=== PATIENT | female | born 1985 | race Asian ===

== ENCOUNTER 2018-04-14 20:44 | Emergency (ER) | payer OTHER ==
[~2018-04-14] VITALS: Ht 162.6 cm; Wt 142.9 kg
[~2018-04-14 20:44] MED LIST: CLONIDINE0.2 MG PO
[2018-04-14 20:58] VITALS: TEMP 98.2
[2018-04-14 21:44] LABS: PLATELET COUNT 352 K/uL (152-353)
[2018-04-14 21:56] LABS: POTASSIUM 3.7 mmol/L (3.6-5.2)
[2018-04-14 22:54] VITALS: BP 173/119
== END 2018-04-14 22:54 | disposition home or self-care (01) ==
LOC: ED 20:44
PROVIDERS: Emergency Medicine
DX: R51 Headache (principal); I10 Essential (primary) hypertension
CPT/HCPCS: 80053; 81025; 85027; 93005; 96372; 99283; J2175; J3490

== ENCOUNTER 2018-09-18 05:43 | Observation (INO) | payer OTHER ==
[~2018-09-18] VITALS: Ht 162.6 cm; Wt 132.1 kg
[2018-09-18] VITALS (13 sets, daily range): BP systolic 150–248; BP diastolic 105–172; TEMP 98.2–98.3; Ht 162.6 cm; Wt 132.1 kg
[2018-09-18 07:38] LABS: PLATELET COUNT 327 K/uL (152-353)
[2018-09-18] MEDS ORDERED: UNITH DIRECT75 MCG PO (07:40)
[2018-09-18] MEDS ORDERED: HYZAAR1 TA1 PO (07:40)
[2018-09-18 07:47] LABS: POTASSIUM 3.5 mmol/L (3.6-5.2)
[2018-09-18 16:44] LABS: PARTIAL THROMBOPLASTIN TIME 27.6 SECONDS (24.5-33.6)
[2018-09-19] VITALS: BP 154/111; TEMP 97.7
[2018-09-19 01:03] LABS: POTASSIUM 3.6 mmol/L (3.6-5.2)
[2018-09-19 04:00] VITALS: BP 147/107; TEMP 98.1
[2018-09-19 07:06] LABS: PLATELET COUNT 310 K/uL (152-353)
[2018-09-19 08:00] VITALS: BP 148/104; TEMP 97.6
[2018-09-19] MEDS ORDERED: BENZONATATE100 MG PO (09:49)
[2018-09-19] MEDS ORDERED: ASPIRIN325 M1 PO ×2 (09:51→10:04)
[2018-09-19] MEDS ORDERED: LABETALOL200 MG PO (09:51)
[2018-09-19] MEDS ORDERED: Z-PAK PO (09:53)
[2018-09-19] MEDS ORDERED: ASPIR-8181 MG PO (10:02)
[2018-09-19 12:00] VITALS: BP 152/105; TEMP 97.9
[2018-09-19 16:00] VITALS: BP 152/105; TEMP 97.9
== END 2018-09-19 16:30 | disposition home or self-care (01) ==
LOC: ED 05:43 → MED/SURG 10:32
PROVIDERS: Emergency Medicine; ADMIT Family Medicine
DX: R04.0 Epistaxis (principal); E03.8 Other specified hypothyroidism; E66.01 Morbid (severe) obesity due to excess calories; Z68.43 Body mass index [BMI] 50.0-59.9, adult; Z71.3 Dietary counseling and surveillance; G47.33 Obstructive sleep apnea (adult) (pediatric); E87.6 Hypokalemia; I12.9 Hypertensive chronic kidney disease with stage 1 through stage 4 chronic kidney disease, or unspecified chronic kidney disease; N18.2 Chronic kidney disease, stage 2 (mild); E83.42 Hypomagnesemia; J20.9 Acute bronchitis, unspecified; R79.89 Other specified abnormal findings of blood chemistry
CPT/HCPCS: 36415; 80048; 80053; 81000; 82550; 83735; 84443; 84484; 85027; 85610; 85730; 93005; 96374; 96375; 99220; 99284; G0378; J1650; J1940; J3475; J3490

== ENCOUNTER 2019-02-27 01:06 | Emergency (ER) | payer OTHER ==
[~2019-02-27] VITALS: Ht 162.6 cm; Wt 143.8 kg
[~2019-02-27 01:06] MED LIST changes: +ASPIR-8181 MG PO; +ASPIRIN325 M1 PO; +BENZONATATE100 MG PO; +HYZAAR1 TA1 PO; +LABETALOL200 MG PO; +UNITH DIRECT75 MCG PO; +Z-PAK PO
[2019-02-27 01:22] VITALS: BP 188/103; TEMP 97.7
== END 2019-02-27 01:38 | disposition home or self-care (01) ==
LOC: ED 01:06
DX: O46.91 Antepartum hemorrhage, unspecified, first trimester (principal); Z3A.10 10 weeks gestation of pregnancy
CPT/HCPCS: 99281

== ENCOUNTER 2020-05-04 21:31 | Outpatient (CLI) | payer BC | END 2020-05-04 22:30 | disposition home or self-care (01) | LOC: RAD 21:31 | DX: J20.9 Acute bronchitis, unspecified (principal) ==

== ENCOUNTER 2020-05-08 05:12 | Emergency (ER) | payer BC, OTHER ==
[~2020-05-08] VITALS: Ht 162.6 cm; Wt 142.9 kg
[2020-05-08 06:50] VITALS: BP 198/122; TEMP 98.2
== END 2020-05-08 06:50 | disposition home or self-care (01) ==
LOC: ED 05:12
DX: S29.011A Strain of muscle and tendon of front wall of thorax, initial encounter (principal); J42 Unspecified chronic bronchitis
CPT/HCPCS: 99284; J1885

== ENCOUNTER 2020-07-15 12:53 | Emergency (ER) | payer BC, OTHER ==
[~2020-07-15] VITALS: Ht 162.6 cm; Wt 142.9 kg
[2020-07-15 13:40] LABS: PLATELET COUNT 246 K/uL (152-353)
[2020-07-15 13:46] LABS: POTASSIUM 4.2 mmol/L (3.6-5.2)
[2020-07-15 16:55] VITALS: BP 170/111; TEMP 98
== END 2020-07-15 17:00 | disposition home or self-care (01) ==
LOC: ED 12:53
PROVIDERS: Hospitalist
DX: J18.9 Pneumonia, unspecified organism (principal); R19.7 Diarrhea, unspecified; R11.2 Nausea with vomiting, unspecified; Z20.828 Contact with and (suspected) exposure to other viral communicable diseases
CPT/HCPCS: 80053; 81025; 83690; 85027; 87502; 87635; 87651; 96360; 96365; 96375; 96376; 99284; J0360; J0696; J2405; J3490; U0003

== ENCOUNTER 2020-12-04 11:18 | Outpatient (CLI) | payer BC, OTHER ==
[2020-12-04 12:10] LABS: PLATELET COUNT 259 K/uL (152-353)
== END 2020-12-04 22:00 | disposition home or self-care (01) ==
LOC: LABW 11:18
PROVIDERS: ATTEND Nurse Practitioner Family
DX: Z03.89 Encounter for observation for other suspected diseases and conditions ruled out (principal)
CPT/HCPCS: 36415; 85027

== ENCOUNTER 2020-12-06 13:40 | Inpatient (IN) | payer BC, OTHER ==
[~2020-12-06] VITALS: Ht 162.6 cm; Wt 161.2 kg
[2020-12-06 02:30] VITALS: BP 175/106
--- NOTE | 2020-12-06 14:05 | NUR ---
PATIENT BROUGHT VIA WHEELCHAIR TO ROOM 1111. PATIENT ORIENTED TO ROOM AND CALL LIGHT. VITAL SIGNS TAKEN AND WERE FOLLOWED: 98.5 TEMP, HR-101, R-25, 247/148, 97% ON RA.
--- NOTE | 2020-12-06 14:26 | NUR ---
MANUAL BLOOD PRESSURE TAKEN IN THE LEFT UPPER ARM AND READING 210/140 WITH HR 100. NOTIFIED AND NEW ORDERS GIVEN FOR LABETOLOL 200 MG PO X1 NOW;LOPRESSOR 5MG SLOW IV PUSH X1. ORDERS PLACED AT THIS TIME.
--- NOTE | 2020-12-06 14:50 | NUR ---
IV 20G X1 ATTEMPT TO THE RAC UNSUCCESSFUL. IV 22G TO THE LEFT FOREARM X1 ATTEMPT, FLUSHED AND SECURED WITH NS IV FLUSHED WITHOUT DIFFICULTY.
--- NOTE | 2020-12-06 14:51 | NUR ---
IV LOPRESSOR 5 MG IV PUSH X1 GIVEN TO THE LEFT FOREARM. LABETALOL 200 MG PO X1 NOW.
[2020-12-06 15:22] LABS: PLATELET COUNT 273 K/uL (152-353)
[2020-12-06 15:48] LABS: POTASSIUM 3.4 mmol/L (3.6-5.2); SODIUM 139 mmol/L (136-145)
[2020-12-06] MEDS ORDERED: LABETALOL200 MG PO (15:53)
[2020-12-06] MEDS ORDERED: [UNRECOGNIZED DRUG - OTHER] PO (15:54)
[2020-12-06 15:55] VITALS: BP 247/148; TEMP 98.5; Ht 162.6 cm; Wt 161.2 kg
--- NOTE | 2020-12-06 16:31 | NUR ---
RECHECKED BLOOD PRESSURE TO THE LEFT ARM MANUAL AND IT WAS READING 198/130. NOTIFIED . AWAITING RESULTS.
--- NOTE | 2020-12-06 17:56 | NUR ---
SPOKE TO DR. SHARMA REGARDING CONCERNS FOR PATIENT SHORTNESS OF BREATH ON EXERTION AND ON REST WHILE IN THE BED. NOTIFIED THAT PATIENT STATED SHE USES A CPAP AT NIGHT BUT THAT HER WAS NOT GOING TO BE ABLE TO BRING HER MACHINE UP HERE.ALL LABS SENT TO INCLUDING CHEST X-RAY, CMP, CBC, TSH, D.DIMER, CARDIACS. NEW ORDERS GIVEN FOR LASIX 20 MG IV X1 IV PUSH, SYNTHROID 50 MCG X1 PO NOW AND DAILY. PATIENT IS TO BE ON PULSE OX CONTINUOUSLY AND MONITOR 02 SATS AND REPORT ANY FINDINGS TO . DID NOTIFY THAT PATIENTS BLOOD PRESSURE CONTINUES TO BE ELEVATED AT 198/136 MANUAL.
--- NOTE | 2020-12-06 18:32 | NUR ---
RT AT THE BEDSIDE. ABG ORDERED AND OBTAINED.
--- NOTE | 2020-12-06 18:35 | NUR ---
PATIENT PLACED ON 02 AT 2 LPM VIA NC.
[2020-12-06 19:50] VITALS: BP 203/136; TEMP 97.8
--- NOTE | 2020-12-06 20:05 | NUR ---
PT WAS PLACED ON CPAP. BP AT PRESENT IS 203/136. HEART RATE IS 77.
--- NOTE | 2020-12-06 20:30 | NUR ---
20:30PM TO CT FOR CHEST SCAN. 20:45PM BLOOD DRAWN FOR CARDIAC ENZYMES. EKG DONE.
--- NOTE | 2020-12-06 21:09 | NUR ---
LABATELOL 200MG PO GIVEN. LOPRESSOR 5 MG IVSP GIVEN. ASPIRIN 325 MG PO GIVEN. LOVENOX 100MG SQ GIVEN. WILL ASSESS IN 1 HOUR FOR EFFECTIVENESS.
--- NOTE | 2020-12-06 21:24 | NUR ---
PT IS RESTING. WEARING C PAP . STATED THAT SHE HADNT RESTED SINCE YESTERDAY. "FEELS TIRED". HR IS 70 BPM. O2 SAT IS 100 PERCENT.
--- NOTE | 2020-12-06 22:03 | NUR ---
BP WAS REASSESSED. 227/148. 40 MINUTES AFTER MEDICATIONS ADMINISTRATION.LAB REPORT BACK ELEVATED CPK. CT REPORT BACK ENLARGED HEART. 800 ML OF CLEAR URINE MEASURED. PT IS RESTING. WEARING CPAP. HR IS 77 AND O2 SAT IS 99 PERCENT.
--- NOTE | 2020-12-06 22:17 | NUR ---
CHARGE NURSE LUKE ASHLEY RN REPORTED TO DR. SHARMA RESULTS OF CT,EKG, CARDIAC ENZYMES, BP,HR, AND PT'S CURRENT STATUS. NEW ORDERS RECEIVED, PT DENIES AND CHSET PAIN OR DISCOMFORT AT THIS TIME.
--- NOTE | 2020-12-06 22:33 | NUR ---
CALLED DR SHARMA WITH PATIENTS MANUAL BP. IT WAS 182/124 DR SHARMA ORDERED NITRO PASTE, LOSARTAN NOROVASC, AND CLONIDINE.
--- NOTE | 2020-12-06 23:11 | NUR ---
PATIENT BP IS 176/122
[2020-12-06 23:37] VITALS: BP 176/122; TEMP 97.6
[2020-12-07] VITALS (45 sets, daily range): BP systolic 132–177; BP diastolic 73–115; TEMP 97.9–98.5
--- NOTE | 2020-12-07 00:03 | NUR ---
HR IS 67. MONITORING PT'S BP AND HR AND EFFECTS OF MEDICATION GIVEN PRIOR. PT IS TO BE MOVED TO ICU FOR ADMINSTRATION OF CARDENE DRIP.
--- NOTE | 2020-12-07 00:39 | NUR ---
LATE ENTRY 12/06/20 2211: BP 182/124 MANUAL 2303: BP 176/122 MANUAL 0010: BP201/132 0030: 204/133 0045: 160/108
--- NOTE | 2020-12-07 00:43 | NUR ---
PT WITH SR 66. BP 168/108. O2 SAT IS 99 PERCENT. PATIENT IS RESTING. BEDSIDE TABLE IN EASY REACH. ENTRY LEVEL ADMINISTRATIVE ASSISTANT INTACT. MONITORING BP EVERY 15 MINUTES PER PROTOCAL.
--- NOTE | 2020-12-07 02:31 | NUR ---
EKG BEING DONE. BLOOD FOR CARDIAC ENZYMES NUMBER 3 WAS DRAWN. CARDENE DRIP AT 15, MEAN PRESSURE 129.
--- NOTE | 2020-12-07 02:34 | NUR ---
PT UP OUT OF BED WITH SUPERVISION. TO BATHROOM TO VOID. BACK TO BED. PT DOES BECOME SHORT OF BREATH WITH ACTIVITY. CPAP PLACED BACK ON.
--- NOTE | 2020-12-07 02:39 | NUR ---
EKG RESULTS ARE SINUS RHYTHM/LEFT ATRIAL ENLARGEMENT/PROLONGED QT INTERVAL.
--- NOTE | 2020-12-07 04:01 | NUR ---
BP IS 147/88. CARDENE DRIP AT 2.5 MG/HR 25ML/HR AT PRESENT TIME. MEAN PRESSURE IS 111.
--- NOTE | 2020-12-07 07:00 | NUR ---
REC'D PT RESTING IN BED IN SEMI-DANIELS'S. PT AWAKE AND ALERT. NO ACUTE DISTRESS OR CO AT THIS TIME. CARDENE DRIP INFUSIMG VIA PUMP INTO LEFT FA AT 50ML/HR. PT'S BP ON ARRIVAL OF SHIFT 154/93 (113). WILL CON'T TO MONITOR AND ADJSUT PER PROTOCOL. PT WEARING PERSONAL CPAP MACHINE AT THIS ITME.
[2020-12-07 07:35] LABS: PLATELET COUNT 269 K/uL (152-353)
[2020-12-07 07:56] LABS: POTASSIUM 3.7 mmol/L (3.6-5.2)
--- NOTE | 2020-12-07 08:15 | NUR ---
PT CO OF HEADACHE. BP 137/78 MAP (99). BP 15 MINS PRIOR WAS 146/86 MAP(107)/ CARDENE DRIP INFRUSING AT 50ML/HR AND WAS DECREASED TO 25ML/HR AT THIS TIME. WILL CON'T TO MONITOR PT AND PT'S BP AND WILL NOTIFY MD IN NEEDED
--- NOTE | 2020-12-07 08:50 | NUR ---
bp remains 132/74 DR SHARMA NOTIFIED AND AWAITING FURTHER ORDERS. ALSO ASKED MD IF SHE WANTED PT TO REC PO LABETOL OR HOLD DT RECENT BP. NEW ORDERS REC'D TO OBTAIN CARDIAC ENZYMES EVERY 6 HR UNTIL WNL.
--- NOTE | 2020-12-07 09:44 | NUR ---
DR HUSSEIN CALLED AND NEW ORDERS REC'D TO GIVE PO LABETOL AND WAIT APPROX 30 MINS TO STOP IV CARDENE DRIP. WILL EXPLAIN TO PT NE ORDERS
--- NOTE | 2020-12-07 10:17 | NUR ---
CARDENE DRIP STOPPED AT THIS TIME PER MD ORDERS. WILL CONT TO MONITOR.
--- NOTE | 2020-12-07 11:00 | NUR ---
SAURABH FROM [facility] AT PT'S BS PERFORMING ECHO AT THIS TIME. 1135 PT'S BP NOTED TO BE SLIGHTLY INCREASED FROM PREVIOUS READING AT 164/102 DR HUSSEIN AWARE AND AWAITING FURTHER ORDERS AT THIS TIME
--- NOTE | 2020-12-07 11:36 | NUR ---
NEW ORDERS REC'D FOR TYLENOL 650MG AT THIS TIME FOR KEANE
--- NOTE | 2020-12-07 11:59 | NUR ---
NEW ORDERS REC'D TO HOLD OFF ON NITRO AT THIS TIME BP 140/95 WILL CONT TO MONITOR.
--- NOTE | 2020-12-07 12:55 | NUR ---
ECHO REPORT SENT TO DR HUSSEIN BY SAURABH IN [facility].
--- NOTE | 2020-12-07 14:04 | NUR ---
DR SHARMA HERE AT BS MAKING ROUNDS AT THIS TIME.
--- NOTE | 2020-12-07 14:10 | NUR ---
PT WILL BE REFERED TO DR CARBAJAL PER DR REAL. MD'S SPOKE ON PHONE EARLIER TODAY AND WILL ATTEMPT TO SET UP REFERAL APPT FOR PT WITH DR CARBAJAL FOR OUT-PT AND INFORM PT. PT WILL ALSO BE REFERED TO ONCOLOGY FOR WORK-UP FOR POSSIBLE AMYLOID. PER DR SHARMA PT WILL BE REFERED TO [facility] FOR OUT-PT REFERAL.
--- NOTE | 2020-12-07 14:28 | NUR ---
ATTMEPTED TO CALL TO REFER PT TO [facility] PER MD REQUEST BUT [facility] CLOSED. SO DAWN AT DR LIN [facility] INFORMED TO REFER PT ON THURSDAY AND NOTIFY PT WITH APPT DATE AND TIME.
--- NOTE | 2020-12-07 15:47 | NUR ---
1530 PT TRANSFERED TO ROOM 111 ON MS VIA WC. PT AWAKE AND ALERT. NO DISTRESS OR PROBLEMS NOTED. WILL CON'T TO MONITOR, PT HAs appt with dr vargas on 12-11-20 at 3:45 at [facility]. pt aware of appt
--- NOTE | 2020-12-07 16:30 | NUR ---
DR SHARMA CALLED AND BP OF 160/110 REPORTED AT THIS TIME. INFORMED THAT PT HAS JUST REC'D LABETOL 200MG PO AT THIS TIME. WILL CONT TO MONITOR. ORDERS REC'D TO MONITOR RECHECK IN ONE HR AND INFORM MD IF BP REMAINS ELEVATED.
--- NOTE | 2020-12-07 16:39 | NUR ---
INFOMRED PER PCT BP ELEVATED. BP TAKEN MANUALLY AND NOTED TO BE 160/110. PT SITTING UP ON SIDE OF BED NO DISTRESS NOTED. PT DENIES ANY CO. WILL AUDREY LOYOLA
--- NOTE | 2020-12-07 17:44 | NUR ---
BP CHECKED MANUALLY 150/96 PT SITTING ON BED TALKIGN WITH NO CO OR DISTRESS AT THIS TIME
--- NOTE | 2020-12-07 18:45 | NUR ---
DR SHARMA CALLED BACK AND STATED TO KEEP EYE ON BP AND ADD CARDIAC ENZYMES TO AM LABS
--- NOTE | 2020-12-07 20:15 | NUR ---
ENTERED PATIENT'S ROOM. PATIENT LYING IN BED IN HIGH DANIELS'S POSITION. CPAP INTACT. NAD NOTED. PATIENT STATES THAT SHE IS SLEEPY. B/P TAKEN VIA MACHINE READ 188/130 RIGHT ARM AND 177/115 LEFT ARM. MANUAL B/P WAS 180/110. BED LOCKED AND IN LOWEST POSITION. CALL LIGHT WITHIN REACH.
--- NOTE | 2020-12-07 20:30 | NUR ---
DR. SHARMA NOTIFIED OF PATIENT'S CURRENT B/P. LABETALOL 200MG PO GIVEN AT THIS TIME PER CURRENT MD ORDERS. 2114- THE FOLLOWING ORDERS WERE GIVEN AT THIS TIME BY DR. SHARMA- GIVEN ANOTHER LABETALOL 200MG NOW. CHANGE LABETALOL TO 400MG TID. GIVE NORVASC 10MG NOW AND THEN CONTINUE DAILY. WILL RE-CHECK B/P AND NOTIFY DR. SHARMA IF B/P DOES NOT COME DOWN.
--- NOTE | 2020-12-07 23:14 | NUR ---
CALLED DR. SHARMA TO INFORM HER OF PATIENT'S CURRENT B/P. B/P VIA MACHINE WAS 171/103 RIGHT ARM. MANUAL B/P WAS 162/104. PATIENT RESTING QUIETLY IN BED. NAD NOTED. NO ORDERS GIVEN. CONTINUE TO MONITOR FOR NOW.
[2020-12-08] VITALS: BP 143/99; TEMP 97.7
--- NOTE | 2020-12-08 | NUR ---
B/P FROM [employer] V/S WAS 143/99 VIA V/S MACHINE.
[2020-12-08 04:00] VITALS: BP 138/94; TEMP 97.6
--- NOTE | 2020-12-08 04:00 | NUR ---
CURRENT B/P VIA MACHINE IS 138/94. DR. SHARMA NOTIFIED. NO ORDERS GIVEN. WILL CONTINUE TO MONITOR B/P FOR CHANGES.
--- NOTE | 2020-12-08 06:10 | NUR ---
PATIENT LYING IN BED WATCHING TV. NAD NOTED. 0700 MEDICATION GIVEN. DENIES ANY CONCERNS OR COMPLAINTS AT THIS TIME. BED LOCKED AND IN LOWEST POSITION. CALL LIGHT WITHIN REACH.
[2020-12-08 06:57] LABS: PLATELET COUNT 267 K/uL (152-353)
[2020-12-08 07:16] LABS: POTASSIUM 4.1 mmol/L (3.6-5.2)
[2020-12-08 08:00] VITALS: BP 132/92; TEMP 97.5
--- NOTE | 2020-12-08 09:00 | NUR ---
DR SHARMA CALLED AND ALL LAB REPORTS GIVEN TO HER AND UPDATED BP. ORDERS REC'D TO GIVE ALL AM MEDS AND MONITOR BP AND HR AND IF BOTH REMAINS STABLE AFTER 1200 VS PT MAY BE DISCHARGED HOME PREVIOUSLY DISCUSSED ON ROUNDS ON 12-06-20. PT INFORMED AND VERBALIZED UNDERSTANDING.
[2020-12-08 12:00] VITALS: BP 156/108; TEMP 98.1
--- NOTE | 2020-12-08 12:50 | NUR ---
DISCOVERED LOSARTAN 100MG NOT ON EMAR FROM [address] SHARMA INFOMRED AND REPORTED TO MD THAT DOSE WAS GIVEN PRIOR TO CONTACTING HER. ORDERS REC'D TO INFOMR PT AND PT MAY BE DC'D HOME AT THIS TIME WITH STRICT INSTRUCTIONS ON WHEN AND WAHT TIME TO TAKE ALL BP MEDS AT HOME AFTER DISCHARGE. PT VERBALIZED UNDERSTANDING AND IMPORTANCE OF TAKING AND KEEPING BP LOG AND TAKE TO FOLLOW UP APPT WITH DR SHARMA. PT WILL CALL THURSDAY FOR APPT DATE AND TIME. 1410 PT LEFT VIA WC. PT'S HERE TO PICK HER UP. NO DISTRESS NOTED.
--- NOTE | 2020-12-08 13:45 | NUR ---
1215 INFOMRED PER PCT PT'S BP NOTED TO BE 150/108. BP CHECKED MANUALLY AND BP FOUND TO BE 160/110. PT SLIGHTLY AGRAVATED AND AXIOUS. PT READY TO GO HOME. DR SHARMA INFOMRMED OF BP. INSTRUCTED TO RECHECK BP IN 1 HR AND CALL MD AND REPORT. WILL INFOMR PT
== END 2020-12-08 18:17 | disposition home or self-care (01) | DRG 546 ==
LOC: MED/SURG 13:40 → ICU 13:40 → MED/SURG 13:40 → ICU 13:41 → MED/SURG 12-07 00:20
PROVIDERS: ADMIT Family Medicine; ATTEND Family Medicine
DX: E85.4 Organ-limited amyloidosis (principal); I16.9 Hypertensive crisis, unspecified; I13.0 Hypertensive heart and chronic kidney disease with heart failure and stage 1 through stage 4 chronic kidney disease, or unspecified chronic kidney disease; Z68.44 Body mass index [BMI] 60.0-69.9, adult; E66.01 Morbid (severe) obesity due to excess calories; E28.2 Polycystic ovarian syndrome; E78.49 Other hyperlipidemia; E03.8 Other specified hypothyroidism; N18.2 Chronic kidney disease, stage 2 (mild); I50.89 Other heart failure; R06.02 Shortness of breath; E88.9 Metabolic disorder, unspecified
CPT/HCPCS: 36600; 80053; 81000; 81025; 82550; 82553; 82728; 82805; 83605; 83735; 83880; 84100; 84443; 84484; 85008; 85027; 85379; 86769; 87040; 87086; 87088; 87635; 93005; 94760; 96372; 96374; J1650; J1940; J3490; U0003

== ENCOUNTER 2021-04-03 08:53 | Emergency (ER) | payer BC, OTHER ==
[~2021-04-03] VITALS: Ht 162.6 cm; Wt 163.3 kg
[~2021-04-03 08:53] MED LIST changes: +[UNRECOGNIZED DRUG - OTHER] PO
[2021-04-03 08:57] VITALS: TEMP 98.6
[2021-04-03 09:51] LABS: PLATELET COUNT 236 K/uL (152-353)
[2021-04-03 09:59] LABS: POTASSIUM 4.1 mmol/L (3.6-5.2); SODIUM 142 mmol/L (136-145)
[2021-04-03 10:40] VITALS: BP 209/140
== END 2021-04-03 10:55 | disposition home or self-care (01) ==
LOC: ED 08:53
PROVIDERS: Family Medicine
DX: I10 Essential (primary) hypertension (principal); I50.1 Left ventricular failure, unspecified; Z20.822 Contact with and (suspected) exposure to COVID-19
CPT/HCPCS: 80053; 82553; 83605; 83880; 84484; 85027; 87635; 93005; 99284; U0003